=== PATIENT | male | born 1975 ===

== ENCOUNTER 2021-01-01 17:23 | Emergency (ER) | payer SELFPAY ==
[~2021-01-01] VITALS: Ht 180.3 cm; Wt 107.0 kg
[2021-01-01 17:25] VITALS: BP 154/112
--- NOTE | 2021-01-01 18:24 | PHYS DOC ---
Past History Past Surgical History: Other Additional Past Surgical Histo: leg and eye Alcohol Use: None General Adult EDM: Chief Complaint: PSYCH EVALUATION HPI: HPI: 45-year-old male presents from the [facility] for psychiatric evaluation. He was over there at a counseling appointment when he started to talk feeling like he might be better off . The patient denies any suicidal or homicidal ideation or plan to me. He is just had a lot of stress and has been feeling d epressed. He has been crying nearly every day. He is not on any medications at this time. He denies any medical complaints to me. Review of Systems: Review of Systems: Constitutional: Denies fever or chills Eyes: Denies change in visual acuity HENT: Denies nasal congestion or sore throat Respiratory: Denies cough or shortness of breath Cardiovascular: Denies chest pain or edema GI: Denies abdominal pain, nausea, vomiting, bloody stools or diarrhea : Denies dysuria Musculoskeletal: Denies back pain or joint pain Integument: Denies rash Neurologic: Denies headache, focal weakness or sensory changes Endocrine: Denies polyuria or polydipsia Lymphatic: Denies swollen glands Psychiatric: Depression, suicidal thoughts Allergies: Allergies: Allergies Coded Allergies Type Severity Reaction Last Updated Verified No Known Drug Allergies 01/01/21 No Physical Exam: PE: Constitutional: Well developed, well nourished, no acute distress, non-toxic appearance. [] HENT: Normocephalic, atraumatic, bilateral external ears normal, oropharynx moist, no oral exudates, nose normal. [] Eyes: PERRLA, EOMI, conjunctiva normal, no discharge. [] Neck: Normal range of motion, no tenderness, supple, no stridor. [] Cardiovascular: Heart rate regular rhythm, no murmur [] Lungs & Thorax: Bilateral breath sounds clear to auscultation [] Abdomen: Bowel sounds normal, soft, no tenderness, no masses, no pulsatile masses. [] Skin: Warm, dry, no erythema, no rash. [] Back: No tenderness, no CVA tenderness. [] Extremities: No tenderness, no cyanosis, no clubbing, ROM intact, no edema. [] Neurologic: Alert and oriented X 3, normal motor function, normal sensory function, no focal deficits noted. [] Psychologic: Affect normal, judgement normal, mood tearful, depressed. [] Current Patient Data: Vital Signs: Vital Signs Date Time Temp Pulse Resp B/P (MAP) Pulse Ox O2 Delivery O2 Flow Rate FiO2 01/01/21 17:25 98.7 94 16 154/112 100 Room Air EKG: EKG: [] Radiology/Procedures: Radiology/Procedures: [] Heart Score: C/O Chest Pain: N/A Risk Factors: Risk Factors: DM, Current or recent (<one month) smoker, HTN, HLP, family history of CAD, obesity. Risk Scores: Score 0 - 3: 2.5% MACE over next 6 weeks - Discharge Home Score 4 - 6: 20.3% MACE over next 6 weeks - Admit for Clinical Observation Score 7 - 10: 72.7% MACE over next 6 weeks - Early Invasive Strategies Course & Med Decision Making: Course & Med Decision Making Pertinent Labs and Imaging studies reviewed. (See chart for details) The patient's labs are unremarkable. He is medically stable for behavioral evaluation. The patient has been evaluated by behavioral team. They feel as though the patient is safe to be discharged. I would agree. He has denied all true intention to hurt himself to me. He is just depressed and needs to follow- up for treatment of his depression. He is stable for discharge at this time. [] Carissa Disclaimer: Carissa Disclaimer: This electronic medical record was generated, in whole or in part, using a voice recognition dictation system. Departure Departure: Impression: Primary Impression: Depression Qualified Codes: F32.1 - Major depressive disorder, single episode, moderate Additional Impression: Suicidal thoughts Disposition: HOME / SELF CARE / HOMELESS Condition: STABLE Referrals: PCP,NO (PCP) Patient Instructions: Depression, Adult, [id number], Suicidal Feelings, How to Help Yourself DESI RAGSDALE DO Jan 01, 2021 18:24
[2021-01-01 18:47] LABS: CALCIUM 8.3 mg/dL (8.5-10.1); CREATININE 1.1 mg/dL (0.7-1.3); GFR 72.4; POTASSIUM 4.3 mmol/L (3.5-5.1)
[2021-01-01 18:48] LABS: BASO % 0 % (0-3); EOS # 0.2 x10^3/uL (0.0-0.7); EOS % 3 % (0-3); HEMATOCRIT 46.3 % (39.0-53.0); HEMOGLOBIN 15.3 g/dL (13.0-17.5); LYMPH % 14 % (24-48); MEAN CORPUSCULAR HEMOGLOBIN 30 pg (25-35); MEAN CORPUSCULAR HGB CONC 33 g/dL (31-37); MEAN CORPUSCULAR VOLUME 91 fL (79-100); MONO # 0.5 x10^3/uL (0.0-1.1); MONO % 7 % (0-9); NEUT # 5.5 x10^3uL (1.8-7.7); NEUT % 76 % (31-73); PLATELET COUNT 250 x10^3/uL (140-400); RED BLOOD COUNT 5.11 x10^6/uL (4.30-5.70); RED CELL DISTRIBUTION WIDTH 13.7 % (11.5-14.5); WHITE BLOOD COUNT 7.2 x10^3/uL (4.0-11.0)
[2021-01-01 18:55] LABS: ALBUMIN 3.4 g/dL (3.4-5.0); ALBUMIN/GLOBULIN RATIO 1.1 (1.0-1.7); TOTAL BILIRUBIN 0.3 mg/dL (0.2-1.0); TOTAL PROTEIN 6.5 g/dL (6.4-8.2)
== END 2021-01-01 19:07 | disposition home or self-care (01) ==
LOC: ER 17:23
DX: F32.1 Major depressive disorder, single episode, moderate (principal); R45.851 Suicidal ideations; Z20.822 Contact with and (suspected) exposure to COVID-19
CPT/HCPCS: 80053; 85025; 87426; 99285; C9803; U0003